=== PATIENT | female | born 1985 | race African-American/Black ===

== ENCOUNTER 2019-01-10 10:58 | Inpatient (IN) | payer OTHER ==
[2019-01-10] MEDS ORDERED: morphine CARPU-JECT 4 MG/1 ML DISP.SYRIN IVPUSH ONE (11:40)
[2019-01-10] MEDS ORDERED: SODIUM CHLORIDE 1,000 ML IV STA (11:41)
[2019-01-10] MEDS ORDERED: CEFAZOLIN 1 GM in DEXTROSE 5%-WATER - 50 ML IVPB ONE (11:44)
[2019-01-10] MEDS ORDERED: CLINDAMYCIN 600MG PREMIX IVPB 600 MG/50 ML BAG IVPB ONE (11:53)
[2019-01-10] MEDS ORDERED: CLINDAMYCIN PHOSPHATE 600 MG/4 ML VIAL ONE (11:59)
[2019-01-10] MEDS ORDERED: morphine SULFATE 4 MG/ML VIAL ONE (12:02)
[2019-01-10 12:15] LABS: BASO % 0.8 % (0-2.0); EOS % 0.5 % (0-4.5); HEMATOCRIT 35.4 % (32.4-45.2); HEMOGLOBIN 11.5 GM/dL (10.7-15.3); LYMPH % 13.2 % (8-40); MCH 27.6 pg (25.7-33.7); MCHC 32.6 g/dl (32.0-36.0); MEAN CELL VOLUME 84.8 fl (80-96); MEAN PLT VOLUME 7.3 fl (7.5-11.1); MONO % 6.7 % (3.8-10.2); NEUT % 78.8 % (42.8-82.8); PLATELET COUNT 368 K/MM3 (134-434); RBC 4.18 M/mm3 (3.60-5.2); WHITE BLOOD COUNT 11.5 K/mm3 (4.0-10.0)
[2019-01-10 12:41] LABS: ALBUMIN 3.7 g/dl (3.4-5.0); BILIRUBIN,TOTAL 0.4 mg/dL (0.2-1); BLOOD UREA NITROGEN 7.5 mg/dL (7-18); CALCIUM 9.3 mg/dL (8.5-10.1); CREATININE 0.6 mg/dL (0.55-1.3); POTASSIUM 3.4 mmol/L (3.5-5.1); TOT PROT 7.3 g/dl (6.4-8.2)
--- NOTE | 2019-01-10 12:45 | PDOC ---
History of Present Illness - General Chief Complaint: Sore Throat Stated Complaint: SORE THROAT Time Seen by Provider: 01/10/19 11:36 History Source: Patient - History of Present Illness Timing/Duration: other Past History - Past Medical History Allergies/Adverse Reactions: Allergies Allergy/AdvReac Type Severity Reaction Status Date / Time No Known Allergies Allergy Verified 01/10/19 11:01 Home Medications: Ambulatory Orders Amoxicillin/Potassium Clav [Augmentin 875-125 Tablet] 1 each PO BID #16 tablet 01/12/19 Fluconazole [Diflucan] 150 mg PO ONCE #1 tablet 01/12/19 predniSONE [Deltasone -] 40 mg PO ASDIR 3 Days #12 tab 01/12/19 COPD: No Other medical history: salivary stone - Psycho Social/Smoking Cessation Hx Smoking History: Never smoked Review of Systems - Review of Systems Constitutional: No: Chills, Fever HEENTM: Yes: Mouth Pain. No: Ear Pain, Throat Pain, Throat Swelling Respiratory: No: Cough, Shortness of Breath, Stridor ABD/GI: No: Nausea, Vomiting *Physical Exam - Vital Signs Last Vital Signs Temp Pulse Resp BP Pulse Ox 99.1 F 82 18 148/79 99 01/10/19 10:58 01/10/19 10:58 01/10/19 10:58 01/10/19 10:58 01/10/19 10:58 - Physical Exam General Appearance: Yes: Appropriately Dressed, Moderate Distress HEENT: positive: Normal Voice, Other (floor of mouth swollen and tender, no discharge or stone visualized, marked submandibular swelling, orophaynx clear, no stridor) Neck: positive: Supple. negative: Tender, Lymphadenopathy (R), Lymphadenopathy (L) Respiratory/Chest: negative: Respiratory Distress Integumentary: positive: Dry, Warm Neurologic: positive: Fully Oriented, Alert, Normal Mood/Affect ED Treatment Course - LABORATORY CBC & Chemistry Diagram: 01/11/19 06:00 01/11/19 06:00 - ADDITIONAL ORDERS Additional order review: Laboratory Results 01/10/19 11:48 Sodium 139 Potassium 3.4 L Chloride 103 Carbon Dioxide 26 Anion Gap 10 BUN 7.5 Creatinine 0.6 Est GFR (CKD-EPI)AfAm 136.87 Est GFR (CKD-EPI)NonAf 118.09 Random Glucose 91 Calcium 9.3 Total Bilirubin 0.4 AST 10 L ALT 18 Alkaline Phosphatase 128 H Total Protein 7.3 Albumin 3.7 01/10/19 12:00 RBC 4.18 MCV 84.8 MCHC 32.6 RDW 16.0 H MPV 7.3 L Neutrophils % 78.8 Lymphocytes % 13.2 Monocytes % 6.7 Eosinophils % 0.5 Basophils % 0.8 - RADIOLOGY Radiology Studies Ordered: Category Date Time Status SOFT TISSUE NECK CT WITH CONTR [CT] Stat CT Scan 01/10/19 11:54 Ordered - Medications Given in the ED: ED Medications Discontinued Medications Generic Name Dose Route Start Last Admin Trade Name Freq PRN Reason Stop Dose Admin Sodium Chloride 1,000 mls @ 1,000 mls/hr 01/10/19 11:41 01/10/19 12:11 Normal Saline - IV 01/10/19 12:40 1,000 mls/hr ASDIR STA Administration Cefazolin Sodium 1 gm/ 50 mls @ 100 mls/hr 01/10/19 11:44 01/10/19 12:12 Dextrose IVPB 01/10/19 12:13 Not Given ONCE ONE Clindamycin Phosphate 600 mg in 50 mls @ 100 mls/hr 01/10/19 11:53 01/10/19 12:12 Cleocin 600 Mg Premix Ivpb - IVPB 01/10/19 12:22 100 mls/hr ONCE ONE Administration Morphine Sulfate 4 mg 01/10/19 11:40 01/10/19 12:11 Morphine Injection - IVPUSH 01/10/19 11:41 4 mg ONCE ONE Administration Medical Decision Making - Medical Decision Making 01/10/19 12:45 33 yo F, endorses h/o submandibular salivary gland stone (had 1 extracted several months ago in outside ENT office but states she think she had a 2nd retained stone), was asymptomatic until 2 days ago when she developed sublingual pain and swelling. Was seen at [facility] this am and dx w/ sialolithiasis and discharged w/ supportive tx, percocet and ENT f/u. States she returned home and at some point noticed that "under my chin was swollen". No f/c, stiff neck, dysphagia and is able to handle secretions see exam Concern for recurrent submandibular sialololithiasis vs sialoadenitis vs abscess , less likely elsi's Stable w/ swollen, tender floor of mouth w/ marked submandibular swelling, no airway compromise at this time and handling secretions -pain control -IVF -labs -CT -anticipate admission 01/10/19 16:00 Labs unremarkable. Signed out to AGNES Ricketts pending CT. M/l needs ENT consult and admission 01/10/19 16:14 Discharge - Discharge Information Problems reviewed: Yes Clinical Impression/Diagnosis: Salivary duct calculus Condition: Stable Disposition: HOME - Admission Yes
[2019-01-10 14:13] LABS: EPI CELLS 9.6 /HPF (0-5/HPF); HYALINE CASTS 16 /lpf (0-8); PH,URINE 5.5 (5.0-8.0); URINE APPEARANCE CLOUDY; URINE BACTERIA 134.5 /hpf (NEGATIVE); URINE BILIRUBIN NEGATIVE (NEGATIVE); URINE COLOR YELLOW; URINE GLUCOSE (UA) NEGATIVE (NEGATIVE); URINE KETONE 3+ (NEGATIVE); URINE LEUK ESTERASE TRACE (NEGATIVE); URINE NITRITE NEGATIVE (NEGATIVE); URINE PROTEIN NEGATIVE (NEGATIVE); URINE RBC 3 /hpf (0-4); URINE WBC 3 /hpf (0-5)
[2019-01-10] MEDS ORDERED: ACETAMINOPHEN INJECTION 100 ML IVPB ONE ×2 (14:13→23:13)
[2019-01-10] MEDS ORDERED: ACETAMINOPHEN 1000 MG/100 ML VIAL (NON FORMULARY) IVPB ONE (14:14)
[2019-01-10] MEDS ORDERED: morphine CARPU-JECT 2 MG/1 ML DISP.SYRIN IVPUSH ONE (17:22)
[2019-01-10] MEDS ORDERED: MORPHINE SULFATE 2 MG/ML VIAL ONE (18:06)
[2019-01-10] MEDS ORDERED: DEXAMETHASONE SOD PHOSPHATE 10 MG/1 ML VIAL IVPUSH ONE (18:55)
[2019-01-10] MEDS ORDERED: DEXAMETHASONE SOD PHOSPHATE 10 MG/1 ML VIAL ONE (19:00)
--- NOTE | 2019-01-10 19:21 | PDOC ---
*Physical Exam - Vital Signs Last Vital Signs Temp Pulse Resp BP Pulse Ox 100.2 F H 89 18 116/72 100 01/10/19 18:22 01/10/19 18:22 01/10/19 10:58 01/10/19 18:22 01/10/19 18:22 - Physical Exam Comments: 01/10/19 16:14 Sign-out received from outgoing ER provider Delon. Pt interviewed and examined. Ancillary studies reviewed. Awaiting CT results. While awaiting CT results, patient reports that "a stone came out on its own." CT results indicate 6 mm distal Aishwarya's duct stone with dilatation and inflammatory changes and 1.3 cm calcification to left neck at base of tongue with surrounding inflammatory change, representing possible calcified stylohyoid ligament vs accessory salivary duct stone. Discussed case with ENT MD Dietz who states if patient can tolerate po, can be discharged w/ close outpatient f/u. Patient currently is unable to tolerate po due to mouth/tongue swelling, Decadron given. Will monitor and reassess. 01/10/19 20:14 Patient reassessed, is still unable to tolerate own secretions. Will admit, per ENT will see her on Friday. ENT recommends continue IV abx and steroids. Discussed case with admitting resident MD Rodriguez; patient accepted for inpatient services . ED Treatment Course - LABORATORY CBC & Chemistry Diagram: 01/10/19 12:00 01/10/19 11:48 - ADDITIONAL ORDERS Additional order review: Laboratory Results 01/10/19 01/10/19 01/10/19 13:55 12:01 11:48 Sodium 139 Potassium 3.4 L Chloride 103 Carbon Dioxide 26 Anion Gap 10 BUN 7.5 Creatinine 0.6 Est GFR (CKD-EPI)AfAm 136.87 Est GFR (CKD-EPI)NonAf 118.09 Random Glucose 91 Calcium 9.3 Total Bilirubin 0.4 AST 10 L ALT 18 Alkaline Phosphatase 128 H Total Protein 7.3 Albumin 3.7 Serum , Qual Negative Urine Color Yellow Urine Appearance Cloudy Urine pH 5.5 Ur Specific [place] 1.035 Urine Protein Negative Urine Glucose (UA) Negative Urine Ketones 3+ H Urine Blood Negative Urine Nitrite Negative Urine Bilirubin Negative Urine Urobilinogen 1.0 Ur Leukocyte Esterase Trace Urine WBC (Auto) 3 Urine RBC (Auto) 3 Urine Casts (Auto) 16 U Epithel Cells (Auto) 9.6 Urine Bacteria (Auto) 134.5 01/10/19 12:00 RBC 4.18 MCV 84.8 MCHC 32.6 RDW 16.0 H MPV 7.3 L Neutrophils % 78.8 Lymphocytes % 13.2 Monocytes % 6.7 Eosinophils % 0.5 Basophils % 0.8 - Medications Given in the ED: ED Medications Discontinued Medications Generic Name Dose Route Start Last Admin Trade Name Blaise PRN Reason Stop Dose Admin Acetaminophen 1,000 mg 01/10/19 14:14 01/10/19 14:22 Ofirmev Injection - IVPB 01/10/19 14:15 1,000 mg ONCE ONE Administration Dexamethasone Sodium Phosphate 10 mg 01/10/19 18:55 01/10/19 19:03 Decadron Injection - IVPUSH 01/10/19 18:56 10 mg ONCE ONE Administration Sodium Chloride 1,000 mls @ 1,000 mls/hr 01/10/19 11:41 01/10/19 12:11 Normal Saline - IV 01/10/19 12:40 1,000 mls/hr ASDIR STA Administration Cefazolin Sodium 1 gm/ 50 mls @ 100 mls/hr 01/10/19 11:44 01/10/19 12:12 Dextrose IVPB 01/10/19 12:13 Not Given ONCE ONE Clindamycin Phosphate 600 mg in 50 mls @ 100 mls/hr 01/10/19 11:53 01/10/19 12:12 Cleocin 600 Mg Premix Ivpb - IVPB 01/10/19 12:22 100 mls/hr ONCE ONE Administration Morphine Sulfate 4 mg 01/10/19 11:40 01/10/19 12:11 Morphine Injection - IVPUSH 01/10/19 11:41 4 mg ONCE ONE Administration Morphine Sulfate 2 mg 01/10/19 17:22 01/10/19 18:09 Morphine Injection - IVPUSH 01/10/19 17:23 2 mg ONCE ONE Administration *DC/Admit/Observation/Transfer Diagnosis at time of Disposition: Salivary duct calculus - Discharge Dispostion Decision to Admit order: Yes - Referrals - Patient Instructions - Post Discharge Activity
--- NOTE | 2019-01-10 21:15 | PN ---
Teaching Attending Note Name of Resident: Mynor Carney ATTENDING PHYSICIAN STATEMENT I saw and evaluated the patient. I reviewed the resident's note and discussed the case with the resident. I agree with the resident's findings and plan as documented. SUBJECTIVE: 33 year old woman w/ prior sialolithiasis presents with a 2-3 day history of increased mandibular swelling and difficulty swallowing. 1 year ago was told she has 2 salivary stones and had 1 removed in the office that was causing her pain. 2-3 days ago, notices+ pain, swelling, difficulty swallowing. Patient also mentioned she passed a stone from under tongue earlier today. While in the ED, ENT was notified and noted that they will see the patient and to give the patient Decadron. OBJECTIVE: Last Vital Signs Temp Pulse Resp BP Pulse Ox 100.2 F H 88 18 109/52 L 98 01/10/19 18:22 01/10/19 20:24 01/10/19 20:24 01/10/19 20:24 01/10/19 20:24 gen - appears uncomfortable, no resp distress heent - left saurav-parotid swelling, some tenderness, no stones in mouth neck -left sided tenderness, swelling cv-1+s2+ rrr chest clear ext -no swelling Abnormal Lab Results 01/10/19 01/10/19 01/10/19 11:48 12:00 13:55 WBC 11.5 H RDW 16.0 H MPV 7.3 L Absolute Neuts (auto) 9.1 H Potassium 3.4 L AST 10 L Alkaline Phosphatase 128 H Urine Ketones 3+ H CT results indicate 6 mm distal Orefield's duct stone with dilatation and inflammatory changes and 1.3 cm calcification to left neck at base of tongue with surrounding inflammatory change, representing possible calcified stylohyoid ligament vs accessory salivary duct stone. ASSESSMENT AND PLAN: #Sialadenitis- 6 mm distal Orefield's duct stone with dilatation and inflammatory changes- likely infection of surrounding soft tissues as evidenced by low grade fever, leukocytosis, swelling. Protecting airway, do not suspect airway compromise at this time. 1.3 cm calcification to left neck at base of tongue. -med/surg -npo -speech/swallow eval -monitor airway -c/w decadron 10mg q12hrs -blood cultures -unasyn 3g IV q6hrs -iv fluid hydration -ent evaluation -dvt ppx
--- NOTE | 2019-01-10 21:44 | HP ---
CHIEF COMPLAINT: stones in mouth, difficulty swallowing PCP: Dr. Susana Urrutia HISTORY OF PRESENT ILLNESS: Panchito Napier 33 year old female with a past medical history of sialolithiasis presents with a 2-3 day history of increased swelling and difficulty swallowing. 1 year prior the patient noted that she was at the oral surgeon where she was told she has 2 salivary stones and had 1 removed in the office that was causing her pain. 2-3 days ago, the patient began to notice that she was having increased swelling in her mouth, difficulty swallowing, changes in her voice, at times difficulty breathing, and pain in the mouth. Tried Tylenol and ibuprofen for the pain with no remission and no improvement in swelling. She stated she visited 2 hospitals prior to this visit and was told to follow up with outpatient ENT and given pain medication. She notes that she was first having difficulty swallowing foods and liquids and then began to have trouble swallowing her own saliva. Additionally, states she has a headache , lightheadedness, and ear pain. Denies perioral numbness/tingling, fever, chills, changes in vision, trauma to the mouth, syncope, dizziness, chest pain, nausea, vomiting, abdominal pain, dysuria, generalized weakness, numbness/ tingling elsewhere in the body. She states that while she was here in the ED, one of the salivary stones was excreted. While in the ED, ENT was notified and noted that they will see the patient and to give the patient Decadron. Decadron was given with moderate effect, patient stated swelling has decreased and was able to swallow secretions. ER course was notable for: (1) WBC 11.5, K 3.4 (2) CT of soft tissues and neck showing left distal Huron's duct stone 6mm with dilation of the duct and inflammation of the left duct in mildly atrophic submandibular duct suggesting acute on chronic process. 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 Allergies No Known Allergies Allergy (Verified 01/10/19 11:01) HOME MEDICATIONS: Home Medications Medication Instructions Recorded Oxycodone HCl/Acetaminophen 1 - 2 tab PO BID 01/10/19 [Percocet 5-325 mg Tablet] REVIEW OF SYSTEMS CONSTITUTIONAL: Absent: fever, chills, diaphoresis, generalized weakness, malaise, loss of appetite, weight change HEENT: difficulty swallowing, mouth swelling, ear pain Absent: rhinorrhea, nasal congestion, throat pain, throat swelling, eye pain, visual changes CARDIOVASCULAR: lightheadedness Absent: chest pain, syncope, palpitations, irregular heart rate, peripheral edema RESPIRATORY: cough, shortness of breath Absent: dyspnea with exertion, orthopnea, wheezing, stridor, hemoptysis GASTROINTESTINAL: Absent: abdominal pain, abdominal distension, nausea, vomiting, diarrhea, constipation GENITOURINARY: Absent: dysuria, frequency, urgency, hesitancy, hematuria, flank pain, MUSCULOSKELETAL: Absent: myalgia, arthralgia, joint swelling, back pain, neck pain SKIN: Absent: rash, itching, pallor HEMATOLOGIC/IMMUNOLOGIC: Absent: easy bleeding, easy bruising, lymphadenopathy, frequent infections ENDOCRINE: Absent: unexplained weight gain, unexplained weight loss, heat intolerance, cold intolerance NEUROLOGIC: Absent: headache, focal weakness or paresthesias, dizziness, unsteady gait, seizure, mental status changes PSYCHIATRIC: Absent: anxiety, depression, suicidal or homicidal ideation, hallucinations. PHYSICAL EXAMINATION Vital Signs - 24 hr 01/10/19 01/10/19 01/10/19 10:58 18:22 20:24 Temperature 99.1 F 100.2 F H Pulse Rate 82 Pulse Rate [ 89 88 Right Apical] Respiratory 18 18 Rate Blood Pressure 148/79 Blood Pressure 116/72 109/52 L [Right Arm] O2 Sat by Pulse 99 100 98 Oximetry (%) GENERAL: Awake, alert, and fully oriented, in mild acute distress. HEAD: Normal with no signs of trauma. EYES: Pupils equal, round and reactive to light, extraocular movements intact, sclera anicteric, conjunctiva clear. EARS, NOSE, THROAT: Oropharynx clear without exudates. Poor visualization of soft palate. Tongue swollen, noted dry blood on left submandibular salivary duct. Dry mucous membranes. NECK: Normal range of motion, supple without lymphadenopathy, JVD. LUNGS: Breath sounds equal, clear to auscultation bilaterally. No wheezes, and no crackles. No accessory muscle use. HEART: Regular rate and rhythm, normal S1 and S2 without murmur, rub. ABDOMEN: Soft, nontender, not distended, normoactive bowel sounds, no guarding, no rebound, no masses. MUSCULOSKELETAL: Normal range of motion at all joints. No bony deformities or tenderness. No CVA tenderness. UPPER EXTREMITIES: 2+ pulses, warm, well-perfused. No cyanosis. No clubbing. No peripheral edema. LOWER EXTREMITIES: 2+ pulses, warm, well-perfused. No calf tenderness. No peripheral edema. NEUROLOGICAL: Cranial nerves II-XII intact. 5/5 muscle strength bilaterally upper and lower extremities. PSYCHIATRIC: Cooperative. Good eye contact. Appropriate mood and affect. SKIN: Warm, dry, normal turgor, no rashes or lesions noted, normal capillary refill. Laboratory Results - last 24 hr 01/10/19 01/10/19 01/10/19 11:48 12:00 12:01 WBC 11.5 H RBC 4.18 Hgb 11.5 Hct 35.4 MCV 84.8 MCH 27.6 MCHC 32.6 RDW 16.0 H Plt Count 368 MPV 7.3 L Absolute Neuts (auto) 9.1 H Neutrophils % 78.8 Lymphocytes % 13.2 Monocytes % 6.7 Eosinophils % 0.5 Basophils % 0.8 Nucleated RBC % 0 Sodium 139 Potassium 3.4 L Chloride 103 Carbon Dioxide 26 Anion Gap 10 BUN 7.5 Creatinine 0.6 Est GFR (CKD-EPI)AfAm 136.87 Est GFR (CKD-EPI)NonAf 118.09 Random Glucose 91 Calcium 9.3 Total Bilirubin 0.4 AST 10 L ALT 18 Alkaline Phosphatase 128 H Total Protein 7.3 Albumin 3.7 Serum , Qual Negative Urine Color Urine Appearance Urine pH Ur Specific [place] Urine Protein Urine Glucose (UA) Urine Ketones Urine Blood Urine Nitrite Urine Bilirubin Urine Urobilinogen Ur Leukocyte Esterase Urine WBC (Auto) Urine RBC (Auto) Urine Casts (Auto) U Epithel Cells (Auto) Urine Bacteria (Auto) 01/10/19 13:55 WBC RBC Hgb Hct MCV MCH MCHC RDW Plt Count MPV Absolute Neuts (auto) Neutrophils % Lymphocytes % Monocytes % Eosinophils % Basophils % Nucleated RBC % Sodium Potassium Chloride Carbon Dioxide Anion Gap BUN Creatinine Est GFR (CKD-EPI)AfAm Est GFR (CKD-EPI)NonAf Random Glucose Calcium Total Bilirubin AST ALT Alkaline Phosphatase Total Protein Albumin Serum , Qual Urine Color Yellow Urine Appearance Cloudy Urine pH 5.5 Ur Specific [place] 1.035 Urine Protein Negative Urine Glucose (UA) Negative Urine Ketones 3+ H Urine Blood Negative Urine Nitrite Negative Urine Bilirubin Negative Urine Urobilinogen 1.0 Ur Leukocyte Esterase Trace Urine WBC (Auto) 3 Urine RBC (Auto) 3 Urine Casts (Auto) 16 U Epithel Cells (Auto) 9.6 Urine Bacteria (Auto) 134.5 ASSESSMENT/PLAN: Panchito Napier 33 year old female with a past medical history of sialolithiasis presents with difficulty swallowing, shortness of breath secondary to tongue swelling from retained salivary stones. Upper airway swelling secondary to Sialolithiasis Hypokalemia Upper airway swelling secondary to Sialolithiasis - from retained stones - CT as above - Unasyn 3g q6h - decadron 10mg q12, consider to taper daily - monitor airway for any compromise or inability to handle secretions - ENT consulted - blood cultures pending - speech/swallow eval - encourage adequate hydration and smoking cessation as these are causes of salivary stones - Protonix 40mg bid - sliding scale and BGM in setting of high dose steroids Hypokalemia - given 2 10Meq IV infusions - continue to monitor FEN - LR at 83 cc/hr - continue to monitor electrolytes and replete as necessary, hypokalemia noted - NPO until advanced by ENT Prophylaxis - heparin 5000 units subq tid Code - full code ELDON RAMIREZ DO - PGY-1 Family Medical History Family Hx Cardiac Disorders: Grandmother (maternal) (HTN), Mother (HTN) Visit type - Emergency Visit Emergency Visit: Yes ED Registration Date: 01/10/19 Care time: The patient presented to the Emergency Department on the above date and was hospitalized for further evaluation of their emergent condition. - New Patient This patient is new to me today: Yes Date on this admission: 01/11/19 - Critical Care Critical Care patient: No
[2019-01-10] MEDS ORDERED: KCL 10 MEQ IVPB 20 MEQ/200 ML INFUS.BAG IVPB ONE (22:36)
[2019-01-10] MEDS: LACTATED RINGERS SOLUTION 1,000 ML/1,000 ML INFUS.BAG IV SCH (22:51)
[2019-01-10] MEDS: KCL 10 MEQ IVPB 10 MEQ/100 ML INFUS.BAG IVPB SCH ×2 (22:51→23:57)
[2019-01-10] MEDS: ACETAMINOPHEN 1000 MG/100 ML VIAL (NON FORMULARY) IVPB PRN (23:12)
[2019-01-11] MEDS ORDERED: CLINDAMYCIN 900 MG PREMIX IVPB 900 MG/50 ML BAG IVPB SCH (02:00)
[2019-01-11] MEDS ORDERED: CLINDAMYCIN 600MG PREMIX IVPB 600 MG/50 ML BAG IVPB SCH (02:00)
[2019-01-11] MEDS ORDERED: CLINDAMYCIN 600MG PREMIX IVPB 600 MG/50 ML BAG IVPB ONE (02:08)
[2019-01-11] MEDS ORDERED: DEXAMETHASONE SOD PHOSPHATE 10 MG/1 ML VIAL ONE ×2 (06:34→18:58)
[2019-01-11] MEDS ORDERED: HEPARIN NA (PORCINE) 5,000 UNITS/ML 1ML VIAL ONE (06:34)
[2019-01-11] MEDS: DEXAMETHASONE SOD PHOSPHATE 10 MG/1 ML VIAL IVPUSH SCH ×2 (06:57→19:20)
[2019-01-11] MEDS: HEPARIN NA (PORCINE) 5,000 UNITS/ML 1ML VIAL SQ SCH ×3 (07:03→22:09)
[2019-01-11] MEDS: INSULIN SLIDING SCALE (NOVOLOG) 1 VIAL SQ SCH ×4 (07:04→22:09)
[2019-01-11 07:08] LABS: BASO % 0.2 % (0-2.0); HEMATOCRIT 35.2 % (32.4-45.2); HEMOGLOBIN 11.4 GM/dL (10.7-15.3); LYMPH % 7.1 % (8-40); MCH 27.5 pg (25.7-33.7); MCHC 32.4 g/dl (32.0-36.0); MEAN CELL VOLUME 84.9 fl (80-96); MEAN PLT VOLUME 7.9 fl (7.5-11.1); MONO % 3.9 % (3.8-10.2); NEUT % 88.8 % (42.8-82.8); PLATELET COUNT 418 K/MM3 (134-434); RBC 4.15 M/mm3 (3.60-5.2); RDW 15.7 % (11.6-15.6); WHITE BLOOD COUNT 12.7 K/mm3 (4.0-10.0)
[2019-01-11 07:23] LABS: ALBUMIN 3.5 g/dl (3.4-5.0); BILIRUBIN,TOTAL 0.4 mg/dL (0.2-1); BLOOD UREA NITROGEN 6.8 mg/dL (7-18); CALCIUM 9.4 mg/dL (8.5-10.1); CREATININE 0.5 mg/dL (0.55-1.3); MAGNESIUM 2.3 mg/dL (1.8-2.4); POTASSIUM 4.2 mmol/L (3.5-5.1); TOT PROT 7.4 g/dl (6.4-8.2)
[2019-01-11] MEDS ORDERED: ACETAMINOPHEN INJECTION 100 ML IVPB ONE (08:27)
[2019-01-11] MEDS: AMPICILLIN NA/SULBACTAM NA 3 GM in SODIUM CHLORIDE 100 ML IVPB SCH ×4 (08:30→22:08)
[2019-01-11] MEDS: ACETAMINOPHEN 1000 MG/100 ML VIAL (NON FORMULARY) IVPB PRN (08:32)
--- NOTE | 2019-01-11 10:27 | EKG ---
Test Reason : Blood Pressure : / mmHG Vent. Rate : 084 BPM Atrial Rate : 084 BPM P-R Int : 134 ms QRS Dur : 086 ms QT Int : 384 ms P-R-T Axes : 000 186 173 degrees QTc Int : 453 ms NORMAL SINUS RHYTHM RIGHT SUPERIOR AXIS DEVIATION ABNORMAL ECG NO PREVIOUS ECGS AVAILABLE Confirmed by GAGE SCHMIDT, LIZZETH ([id number]) on 01/11/2019 10:27:01 AM Referred By: Confirmed By:LIZZETH ALMONTE MD
--- NOTE | 2019-01-11 10:38 | PN ---
Teaching Attending Note Name of Resident: Matti Salazar ATTENDING PHYSICIAN STATEMENT I saw and evaluated the patient. I reviewed the resident's note and discussed the case with the resident. I agree with the resident's findings and plan as documented. SUBJECTIVE: Patient reports some improvement in swelling and ability to swallow. OBJECTIVE: HEENT: Left submandibular fullness HEART: S1S2, RRR LUNGS: Clear ABDOMEN: Obese, soft, non-tender, non-distended, normal BS EXTREMITIES: No edema Laboratory Results - last 24 hr 01/10/19 01/10/19 01/10/19 11:48 12:00 12:01 WBC 11.5 H RBC 4.18 Hgb 11.5 Hct 35.4 MCV 84.8 MCH 27.6 MCHC 32.6 RDW 16.0 H Plt Count 368 MPV 7.3 L Absolute Neuts (auto) 9.1 H Neutrophils % 78.8 Lymphocytes % 13.2 Monocytes % 6.7 Eosinophils % 0.5 Basophils % 0.8 Nucleated RBC % 0 Sodium 139 Potassium 3.4 L Chloride 103 Carbon Dioxide 26 Anion Gap 10 BUN 7.5 Creatinine 0.6 Est GFR (CKD-EPI)AfAm 136.87 Est GFR (CKD-EPI)NonAf 118.09 POC Glucometer Random Glucose 91 Calcium 9.3 Magnesium Total Bilirubin 0.4 AST 10 L ALT 18 Alkaline Phosphatase 128 H Total Protein 7.3 Albumin 3.7 Serum , Qual Negative Urine Color Urine Appearance Urine pH Ur Specific [place] Urine Protein Urine Glucose (UA) Urine Ketones Urine Blood Urine Nitrite Urine Bilirubin Urine Urobilinogen Ur Leukocyte Esterase Urine WBC (Auto) Urine RBC (Auto) Urine Casts (Auto) U Epithel Cells (Auto) Urine Bacteria (Auto) 01/10/19 01/11/19 01/11/19 13:55 06:00 06:00 WBC 12.7 H RBC 4.15 Hgb 11.4 Hct 35.2 MCV 84.9 MCH 27.5 MCHC 32.4 RDW 15.7 H Plt Count 418 MPV 7.9 Absolute Neuts (auto) 11.3 H Neutrophils % 88.8 H Lymphocytes % 7.1 L D Monocytes % 3.9 Eosinophils % 0.0 D Basophils % 0.2 Nucleated RBC % 0 Sodium 136 Potassium 4.2 Chloride 104 Carbon Dioxide 25 Anion Gap 7 L BUN 6.8 L Creatinine 0.5 L Est GFR (CKD-EPI)AfAm 145.33 Est GFR (CKD-EPI)NonAf 125.39 POC Glucometer Random Glucose 127 H Calcium 9.4 Magnesium 2.3 Total Bilirubin 0.4 AST 7 L ALT 15 Alkaline Phosphatase 128 H Total Protein 7.4 Albumin 3.5 Serum , Qual Urine Color Yellow Urine Appearance Cloudy Urine pH 5.5 Ur Specific [place] 1.035 Urine Protein Negative Urine Glucose (UA) Negative Urine Ketones 3+ H Urine Blood Negative Urine Nitrite Negative Urine Bilirubin Negative Urine Urobilinogen 1.0 Ur Leukocyte Esterase Trace Urine WBC (Auto) 3 Urine RBC (Auto) 3 Urine Casts (Auto) 16 U Epithel Cells (Auto) 9.6 Urine Bacteria (Auto) 134.5 01/11/19 07:01 WBC RBC Hgb Hct MCV MCH MCHC RDW Plt Count MPV Absolute Neuts (auto) Neutrophils % Lymphocytes % Monocytes % Eosinophils % Basophils % Nucleated RBC % Sodium Potassium Chloride Carbon Dioxide Anion Gap BUN Creatinine Est GFR (CKD-EPI)AfAm Est GFR (CKD-EPI)NonAf POC Glucometer 135 Random Glucose Calcium Magnesium Total Bilirubin AST ALT Alkaline Phosphatase Total Protein Albumin Serum , Qual Urine Color Urine Appearance Urine pH Ur Specific [place] Urine Protein Urine Glucose (UA) Urine Ketones Urine Blood Urine Nitrite Urine Bilirubin Urine Urobilinogen Ur Leukocyte Esterase Urine WBC (Auto) Urine RBC (Auto) Urine Casts (Auto) U Epithel Cells (Auto) Urine Bacteria (Auto) Current Medications Generic Name Dose Route Start Last Admin Trade Name Freq PRN Reason Stop Dose Admin Acetaminophen 1,000 mg 01/10/19 22:29 01/11/19 08:32 Ofirmev Injection - IVPB 1,000 mg Q6H PRN Administration PAIN OR FEVER Dexamethasone Sodium Phosphate 10 mg 01/11/19 06:00 01/11/19 06:57 Decadron Injection - IVPUSH 10 mg Q12H JUANIS Administration Heparin Sodium (Porcine) 5,000 unit 01/11/19 06:00 01/11/19 07:03 Heparin - SQ Not Given TID JUANIS Lactated Ringer's 1,000 ml in 1,000 mls @ 83 mls/hr 01/10/19 22:30 01/10/19 22:51 Lactated Ringers Solution IV 83 mls/hr ASDIR JUANIS Administration Ampicillin Sodium/Sulbactam 100 mls @ 200 mls/hr 01/11/19 06:30 Sodium 3 gm/ Sodium Chloride IVPB Q6H-IV JUANIS Insulin Aspart 1 vial 01/11/19 07:00 01/11/19 07:04 Novolog Vial Sliding Scale - SQ Not Given ACHS JUANIS Protocol Pantoprazole Sodium 40 mg 01/11/19 10:00 Protonix Iv IVPUSH BID JUANIS ASSESSMENT AND PLAN: This is a 33 year old woman with a history of sialolithiasis who presented to the ED with difficulty swallowing and swelling of her tongue. 1. Sialadenitis - Continue Unasyn, Decadron - IV fluid - NPO - ENT evaluation 2. Hypokalemia - Improved
[2019-01-11] MEDS ORDERED: PANTOPRAZOLE SODIUM 40 MG/100 ML BAG IVPB ONE (11:19)
[2019-01-11] MEDS: PANTOPRAZOLE SODIUM 40 MG VIAL IVPUSH SCH ×2 (15:00→22:09)
--- NOTE | 2019-01-11 16:27 | PN ---
Physical Exam: SUBJECTIVE: see and evaluated at bedside. Expresses improvement in swallowing. Able to tolerate saliva and testing iced water. States that there is still moderate pain in the Left lower jaw but the Left ear pain has resolved OBJECTIVE: Vital Signs Period Temp Pulse Resp BP Sys/Jean-Baptiste Pulse Ox Last 24 Hr 100.2 F 88-105 18-18 109-132/52-76 98-100 GENERAL: The patient is awake, alert, and fully oriented, in no acute distress. HEAD: Normal with no signs of trauma. EYES: sclera anicteric, conjunctiva clear. ENT: Ears normal, nares patent, oropharynx clear without exudates, no blood in oropharynx. Moist mucous membranes. Soft palate visible. No swelling of tongue or under tongue. Mild fullness and tenderness to deep Left submental area. [place] chalky firm subcentimeter mass seen in specimen kit, claimed to be spat out by patient NECK: Trachea midline, full range of motion, supple. LUNGS: Breath sounds equal, clear to auscultation bilaterally, no wheezes, no crackles, no accessory muscle use. HEART: Regular rate and rhythm, S1, S2 without murmur, rub or gallop. ABDOMEN: Soft, nontender, nondistended, no guarding, no rebound, no hepatosplenomegaly, no masses. EXTREMITIES: warm, well-perfused, no edema. NEUROLOGICAL: Cranial nerves II through XII grossly intact. Normal speech, normal gait. PSYCH: Normal mood, normal affect. Laboratory Results - last 24 hr 01/11/19 01/11/19 01/11/19 06:00 06:00 07:01 WBC 12.7 H RBC 4.15 Hgb 11.4 Hct 35.2 MCV 84.9 MCH 27.5 MCHC 32.4 RDW 15.7 H Plt Count 418 MPV 7.9 Absolute Neuts (auto) 11.3 H Neutrophils % 88.8 H Lymphocytes % 7.1 L D Monocytes % 3.9 Eosinophils % 0.0 D Basophils % 0.2 Nucleated RBC % 0 Sodium 136 Potassium 4.2 Chloride 104 Carbon Dioxide 25 Anion Gap 7 L BUN 6.8 L Creatinine 0.5 L Est GFR (CKD-EPI)AfAm 145.33 Est GFR (CKD-EPI)NonAf 125.39 POC Glucometer 135 Random Glucose 127 H Calcium 9.4 Magnesium 2.3 Total Bilirubin 0.4 AST 7 L ALT 15 Alkaline Phosphatase 128 H Total Protein 7.4 Albumin 3.5 01/11/19 13:52 WBC RBC Hgb Hct MCV MCH MCHC RDW Plt Count MPV Absolute Neuts (auto) Neutrophils % Lymphocytes % Monocytes % Eosinophils % Basophils % Nucleated RBC % Sodium Potassium Chloride Carbon Dioxide Anion Gap BUN Creatinine Est GFR (CKD-EPI)AfAm Est GFR (CKD-EPI)NonAf POC Glucometer 141 Random Glucose Calcium Magnesium Total Bilirubin AST ALT Alkaline Phosphatase Total Protein Albumin Active Medications Generic Name Dose Route Start Last Admin Trade Name Freq PRN Reason Stop Dose Admin Acetaminophen 1,000 mg 01/10/19 22:29 01/11/19 08:32 Ofirmev Injection - IVPB 1,000 mg Q6H PRN Administration PAIN OR FEVER Dexamethasone Sodium Phosphate 10 mg 01/11/19 06:00 01/11/19 06:57 Decadron Injection - IVPUSH 10 mg Q12H JUANIS Administration Heparin Sodium (Porcine) 5,000 unit 01/11/19 06:00 01/11/19 07:03 Heparin - SQ Not Given TID JUANIS Lactated Ringer's 1,000 ml in 1,000 mls @ 83 mls/hr 01/10/19 22:30 01/10/19 22:51 Lactated Ringers Solution IV 83 mls/hr ASDIR JUANIS Administration Ampicillin Sodium/Sulbactam 100 mls @ 200 mls/hr 01/11/19 06:30 01/11/19 11: 18 Sodium 3 gm/ Sodium Chloride IVPB Not Given Q6H-IV JUANIS Insulin Aspart 1 vial 01/11/19 07:00 01/11/19 07:04 Novolog Vial Sliding Scale - SQ Not Given ACHS [facility] Protocol Pantoprazole Sodium 40 mg 01/11/19 10:00 Protonix Iv IVPUSH BID JUANIS Vital Signs (72 hours) 01/10/19 01/10/19 01/10/19 10:58 18:22 20:24 Temperature 99.1 F 100.2 F H Pulse Rate 82 Pulse Rate [ 89 88 Right Apical] Respiratory 18 18 Rate Blood Pressure 148/79 Blood Pressure 116/72 109/52 L [Right Arm] O2 Sat by Pulse 99 100 98 Oximetry (%) 01/11/19 01/11/19 01/11/19 02:04 05:29 08:15 Temperature Pulse Rate Pulse Rate [ 105 H 88 Right Apical] Respiratory 18 18 Rate Blood Pressure Blood Pressure 128/74 132/76 [Right Arm] O2 Sat by Pulse 98 98 100 Oximetry (%) CT neck(01/10/19): IMPRESSION: Obstructing stone in the distal left [place]'s duct measuring 6 x 3 mm with thickening and enhancement of the duct suggestive of inflammatory/ infection. Correlate clinically. Atrophic left submandibular gland. There is significant surrounding soft tissue swelling with mass effect on the oropharyngeal and hypopharyngeal airway that is slightly shifted towards the right without any significant narrowing. There is also stranding/edema and the left submandibular fossa extending to the left submental region. Enlarged left submandibular lymph node measuring 2 x 1.1 cm. ASSESSMENT/PLAN: Panchito Napier 33 year old female with a past medical history of sialolithiasis presents with difficulty swallowing, shortness of breath secondary to tongue swelling from retained salivary stones. Upper airway swelling secondary to Sialolithiasis - from retained stones - CT as above - Unasyn 3g q6h - decadron 10mg q12, consider to taper daily - monitor airway for any compromise or inability to handle secretions - ENT consulted -- will evaluate on Friday - blood cultures pending - speech/swallow eval - encourage adequate hydration and smoking cessation as these are causes of salivary stones - Protonix 40mg bid - sliding scale and BGM in setting of high dose steroids - continue to monitor ability to tolerate oral secretions Hypokalemia -- resolved - given 2 10Meq IV infusions >K ~4.2(01/11/19) - continue to monitor FEN - LR at 83 cc/hr - continue to monitor electrolytes and replete as necessary, hypokalemia noted - NPO until advanced by ENT Prophylaxis - heparin 5000 units subq tid Code - full code Visit type - Emergency Visit Emergency Visit: No - New Patient This patient is new to me today: Yes Date on this admission: 01/10/19 - Critical Care Critical Care patient: No ATTENDING PHYSICIAN STATEMENT I saw and evaluated the patient. I reviewed the resident's note and discussed the case with the resident. I agree with the resident's findings and plan as documented. SUBJECTIVE: OBJECTIVE: ASSESSMENT AND PLAN:
[2019-01-11] MEDS ORDERED: PT OWN MED DRAWER 7, Y5N ONE (20:32)
[2019-01-11] MEDS: LACTATED RINGERS SOLUTION 1,000 ML/1,000 ML INFUS.BAG IV SCH ×2 (20:36→22:51)
[2019-01-11 20:53] VITALS: BMI 36.1
[2019-01-12] MEDS: ACETAMINOPHEN 1000 MG/100 ML VIAL (NON FORMULARY) IVPB PRN (00:43)
[2019-01-12] MEDS: AMPICILLIN NA/SULBACTAM NA 3 GM in SODIUM CHLORIDE 100 ML IVPB SCH ×3 (02:42→16:04)
[2019-01-12] MEDS ORDERED: PT OWN MED DRAWER 7, Y5N ONE ×4 (05:27→18:10)
[2019-01-12] MEDS: HEPARIN NA (PORCINE) 5,000 UNITS/ML 1ML VIAL SQ SCH ×2 (05:55→14:35)
[2019-01-12] MEDS: DEXAMETHASONE SOD PHOSPHATE 10 MG/1 ML VIAL IVPUSH SCH ×2 (05:55→18:14)
[2019-01-12] MEDS: INSULIN SLIDING SCALE (NOVOLOG) 1 VIAL SQ SCH ×3 (06:20→18:04)
[2019-01-12] MEDS: PANTOPRAZOLE SODIUM 40 MG VIAL IVPUSH SCH (10:33)
--- NOTE | 2019-01-12 11:39 | CONSULT ---
Admitting History and Physical - Primary Care Physician PCP: Vincent Hinson - Admission History of Present Illness: Per EMR- Panchito Napier 33 year old female with a past medical history of sialolithiasis presents with a 2-3 day history of increased swelling and difficulty swallowing. 1 year prior the patient noted that she was at the oral surgeon where she was told she has 2 salivary stones and had 1 removed in the office that was causing her pain. 2-3 days ago, the patient began to notice that she was having increased swelling in her mouth, difficulty swallowing, changes in her voice, at times difficulty breathing, and pain in the mouth. Tried Tylenol and ibuprofen for the pain with no remission and no improvement in swelling. She stated she visited 2 hospitals prior to this visit and was told to follow up with outpatient ENT and given pain medication. She notes that she was first having difficulty swallowing foods and liquids and then began to have trouble swallowing her own saliva. Additionally, states she has a headache , lightheadedness, and ear pain. Denies perioral numbness/tingling, fever, chills, changes in vision, trauma to the mouth, syncope, dizziness, chest pain, nausea, vomiting, abdominal pain, dysuria, generalized weakness, numbness/ tingling elsewhere in the body. She states that while she was here in the ED, one of the salivary stones was excreted. While in the ED, ENT was notified and noted that they will see the patient and to give the patient Decadron. Decadron was given with moderate effect, patient stated swelling has decreased and was able to swallow secretions. ER course was notable for: (1) WBC 11.5, K 3.4 (2) CT of soft tissues and neck showing left distal [place]'s duct stone 6mm with dilation of the duct and inflammation of the left duct in mildly atrophic submandibular duct suggesting acute on chronic process. Curvilinear calcification 1.3 cm noted at the left base of the tongue which may represent calcified stylohyoid ligament and sequela of [place] syndrome vs accessory salivary duct stone (3) given Clindamycin 600mg once, Morphine 6mg, Dexamethasone 10mg, NSx1L, tylenol 1000mg Pt tolerated reg diet yesterday and was then made NPO. Pt and family report pt was seen by ENT this am who said that she can eat. Pending report/orders History Source: Patient, Family Member Limitations to Obtaining History: No Limitations - Past Medical History ...LMP: 01/04/19 ...: No - Smoking History Smoking history: Never smoked - Alcohol/Substance Use Hx Alcohol Use: No History - Admission Reason For Visit: SIALODOCHOLITHIASIS - Diagnostics CT Scan: Report Reviewed - General Mental Status: Alert and Oriented, Awake and Alert, Able to Follow Commands Attention: Intact Ability to Follow Directions: Excellent Head/Neck Control: WFL - Hearing Hearing: Normal Speech Evaluation - Communication Primary Language: L[place] Communication: Yes: Within Normal Limits Oral Expression Ability: Yes: No Impairment - Speech Production Able to Make Needs Known: Yes: WNL Intelligibility: Yes: WNL - Speech Characteristics Voice Loudness: Normal Voice Pitch: Yes: Normal Voice Phonatory-based Quality: Yes: Normal Speech Pattern: Normal Speech Clarity: < 100% Nasal Resonance: Normal Articulation: Yes: Precise Rate of Speech: Intact - Language/Auditory Comprehension Follows: Yes: 2 Stage Simple Commands - Language/Verbal Expression Able to Respond to Simple Queries: Yes: WNL Able to Communicate Wants and Needs: Yes: WNL Functional Communication Status: Yes: WNL - Swallow Evaluation/Bedside Assessment Current Nutritional Intake: NPO Oral Secretions: Yes: WFL Dentition: Yes: Adequate Facial Symmetry at Rest: Symmetrical Facial Symmetry on Retraction: Symmetrical Sensation: Normal Against Resistance Opening: Normal Against Resistance Closing: Normal Pucker Lips: Normal Smile: Normal Lingual Movement: Normal, Symmetric Lingual Speed of Movement: Normal Lingual Movement Strgth Against Opposition: Normal Lingual Movement Characteristics: Normal Velopharyngeal Movement: Normal Laryngeal Elevation: WFL Laryngeal Movement: Able to Palpate Rate of Intake: WFL Bolus Size: WFL Labial Seal: WFL Chewing: WFL Oral Prep Time: WFL A-P Transit: WFL Pocketing: None Timing of Swallow: WFL Coughing/Throat Clear: No Change in Voice: No Recommendations - Speech Evaluation, Impression/Plan Impression: 3 oz water (-). Tolerated reg diet in ED.Pt feeling much better. Swallowing well. - Dysphagia Impressions/Plan Swallowing Skills: WFL Dysphagia Impressions: No Impairment *Silent aspiration: cannot be R/O at bedside Recommendations: ENT Consult (seen) - Recommendations Diet Consistency: Regular Medication Administration: Whole with water Liquids: Thin Liquids
--- NOTE | 2019-01-12 12:49 | CONSULT ---
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 Had oral surgery removal of a stone last year, and passed one on her own during this hospitalization. Is feeling much better on IV abx, hydration, steroids, and analgesics. Calcium was normal. P/WD obese BF laying comfortably in bed, in NAD Neck no masses/tenderness OC/OP tender/edematous left floor of mouth/[place]'s duct with erythema around the orifice of [place]'s duct Imp: Improving recurrent left submandibular sialadenitis Recommend allowing to eat, continue present management, transition to po meds, and outpatient follow up with ENT
[2019-01-12] MEDS ORDERED: FLUCONAZOLE 150 MG TABLET PO ONE (13:14)
--- NOTE | 2019-01-12 17:11 | PN ---
Teaching Attending Note Name of Resident: Matti Salazar ATTENDING PHYSICIAN STATEMENT I saw and evaluated the patient. I reviewed the resident's note and discussed the case with the resident. I agree with the resident's findings and plan as documented. SUBJECTIVE: Patient reports significant improvement in pain, swelling and ability to swallow. OBJECTIVE: afebril, hemodynamically Stable. Last Vital Signs Temp Pulse Resp BP Pulse Ox 97.9 F 89 18 133/60 100 01/12/19 14:00 01/12/19 14:00 01/12/19 14:00 01/12/19 14:00 01/11/19 20:57 HEENT: No p[haryngeal erythema/exudate. Left submandibular fullness/firmness, non-tender. No lymphadenopathy. HEART: S1S2, RRR LUNGS: Clear to auscultation ABDOMEN: Obese, soft, non-tender, normal BS EXTREMITIES: No edema, no calf tenderness. NEURO: AAO x 3. Tone/Power normal all 4 extremities Laboratory Tests 01/10/19 01/10/19 01/10/19 11:48 12:00 12:01 WBC 11.5 H RBC 4.18 Hgb 11.5 Hct 35.4 MCV 84.8 MCH 27.6 MCHC 32.6 RDW 16.0 H Plt Count 368 MPV 7.3 L Absolute Neuts (auto) 9.1 H Neutrophils % 78.8 Lymphocytes % 13.2 Monocytes % 6.7 Eosinophils % 0.5 Basophils % 0.8 Nucleated RBC % 0 Sodium 139 Potassium 3.4 L Chloride 103 Carbon Dioxide 26 Anion Gap 10 BUN 7.5 Creatinine 0.6 Est GFR (CKD-EPI)AfAm 136.87 Est GFR (CKD-EPI)NonAf 118.09 POC Glucometer Random Glucose 91 Calcium 9.3 Magnesium Total Bilirubin 0.4 AST 10 L ALT 18 Alkaline Phosphatase 128 H Total Protein 7.3 Albumin 3.7 Serum , Qual Negative Urine Color Urine Appearance Urine pH Ur Specific [place] Urine Protein Urine Glucose (UA) Urine Ketones Urine Blood Urine Nitrite Urine Bilirubin Urine Urobilinogen Ur Leukocyte Esterase Urine WBC (Auto) Urine RBC (Auto) Urine Casts (Auto) U Epithel Cells (Auto) Urine Bacteria (Auto) 01/10/19 01/11/19 01/11/19 13:55 06:00 06:00 WBC 12.7 H RBC 4.15 Hgb 11.4 Hct 35.2 MCV 84.9 MCH 27.5 MCHC 32.4 RDW 15.7 H Plt Count 418 MPV 7.9 Absolute Neuts (auto) 11.3 H Neutrophils % 88.8 H Lymphocytes % 7.1 L D Monocytes % 3.9 Eosinophils % 0.0 D Basophils % 0.2 Nucleated RBC % 0 Sodium 136 Potassium 4.2 Chloride 104 Carbon Dioxide 25 Anion Gap 7 L BUN 6.8 L Creatinine 0.5 L Est GFR (CKD-EPI)AfAm 145.33 Est GFR (CKD-EPI)NonAf 125.39 POC Glucometer Random Glucose 127 H Calcium 9.4 Magnesium 2.3 Total Bilirubin 0.4 AST 7 L ALT 15 Alkaline Phosphatase 128 H Total Protein 7.4 Albumin 3.5 Serum , Qual Urine Color Yellow Urine Appearance Cloudy Urine pH 5.5 Ur Specific [place] 1.035 Urine Protein Negative Urine Glucose (UA) Negative Urine Ketones 3+ H Urine Blood Negative Urine Nitrite Negative Urine Bilirubin Negative Urine Urobilinogen 1.0 Ur Leukocyte Esterase Trace Urine WBC (Auto) 3 Urine RBC (Auto) 3 Urine Casts (Auto) 16 U Epithel Cells (Auto) 9.6 Urine Bacteria (Auto) 134.5 01/11/19 01/11/19 01/11/19 07:01 13:52 21:06 WBC RBC Hgb Hct MCV MCH MCHC RDW Plt Count MPV Absolute Neuts (auto) Neutrophils % Lymphocytes % Monocytes % Eosinophils % Basophils % Nucleated RBC % Sodium Potassium Chloride Carbon Dioxide Anion Gap BUN Creatinine Est GFR (CKD-EPI)AfAm Est GFR (CKD-EPI)NonAf POC Glucometer 135 141 187 Random Glucose Calcium Magnesium Total Bilirubin AST ALT Alkaline Phosphatase Total Protein Albumin Serum , Qual Urine Color Urine Appearance Urine pH Ur Specific [place] Urine Protein Urine Glucose (UA) Urine Ketones Urine Blood Urine Nitrite Urine Bilirubin Urine Urobilinogen Ur Leukocyte Esterase Urine WBC (Auto) Urine RBC (Auto) Urine Casts (Auto) U Epithel Cells (Auto) Urine Bacteria (Auto) 01/12/19 01/12/19 05:53 11:15 WBC RBC Hgb Hct MCV MCH MCHC RDW Plt Count MPV Absolute Neuts (auto) Neutrophils % Lymphocytes % Monocytes % Eosinophils % Basophils % Nucleated RBC % Sodium Potassium Chloride Carbon Dioxide Anion Gap BUN Creatinine Est GFR (CKD-EPI)AfAm Est GFR (CKD-EPI)NonAf POC Glucometer 131 123 Random Glucose Calcium Magnesium Total Bilirubin AST ALT Alkaline Phosphatase Total Protein Albumin Serum , Qual Urine Color Urine Appearance Urine pH Ur Specific [place] Urine Protein Urine Glucose (UA) Urine Ketones Urine Blood Urine Nitrite Urine Bilirubin Urine Urobilinogen Ur Leukocyte Esterase Urine WBC (Auto) Urine RBC (Auto) Urine Casts (Auto) U Epithel Cells (Auto) Urine Bacteria (Auto) Current Medications Generic Name Dose Route Start Last Admin Trade Name Freq PRN Reason Stop Dose Admin Acetaminophen 1,000 mg 01/10/19 22:29 01/12/19 00:43 Ofirmev Injection - IVPB 1,000 mg Q6H PRN Administration PAIN OR FEVER Dexamethasone Sodium Phosphate 10 mg 01/11/19 06:00 01/12/19 05:55 Decadron Injection - IVPUSH 10 mg Q12H JUANIS Administration Heparin Sodium (Porcine) 5,000 unit 01/11/19 06:00 01/12/19 14:35 Heparin - SQ Not Given TID JUANIS Lactated Ringer's 1,000 ml in 1,000 mls @ 83 mls/hr 01/10/19 22:30 01/11/19 22:51 Lactated Ringers Solution IV Not Given ASDIR JUANIS Ampicillin Sodium/Sulbactam 100 mls @ 200 mls/hr 01/11/19 06:30 01/12/19 16: 04 Sodium 3 gm/ Sodium Chloride IVPB 200 mls/hr Q6H-IV JUANIS Administration Insulin Aspart 1 vial 01/11/19 07:00 01/12/19 11:16 Novolog Vial Sliding Scale - SQ Not Given ACHS [facility] Protocol Pantoprazole Sodium 40 mg 01/11/19 10:00 01/12/19 10:33 Protonix Iv IVPUSH 40 mg BID JUANIS Administration Discharge Medications Medication Instructions Recorded Amoxicillin/Potassium Clav 1 each PO BID #16 tablet 01/12/19 [Augmentin 875-125 Tablet] Fluconazole [Diflucan] 150 mg PO ONCE #1 tablet 01/12/19 predniSONE [Deltasone -] 40 mg PO ASDIR 3 Days #12 tab 01/12/19 ASSESSMENT AND PLAN: 33 year old female with a history of recurrent left submandibular sialadenitis, twice in the last 2 years, s/p oral surgical removal of a stone last year, presented with difficulty swallowing, L mandibular swelling and swelling of her tongue. 1. L Submandibular Sialadenitis Afebrile, hemoynamically stable. Passed a stone spontaneously. treated with IV Unasyn and Prednisone. Seen by ENT Medically stable for discharge on Augmentin and short Steroid course. Evaluated by speech therapy- cleared for regular diet/thin liquids. Out-patient ENT follow up. 2. Hypokalemia - resolved. 3. Vaginal candidiasis - for Diflucan - 2 doses, 72 hrs apart.
[2019-01-12 18:12] VITALS: BP 123/77; PULSE 83; TEMP 97.8
--- NOTE | 2019-01-12 20:29 | DS ---
Physical Exam: SUBJECTIVE: Patient seen and examined OBJECTIVE: Vital Signs Period Temp Pulse Resp BP Sys/Jean-Baptiste Pulse Ox Last 24 Hr 97.6 F-98.2 F 64-94 16-18 123-153/60-83 99-100 PHYSICAL EXAM GENERAL: The patient is awake, alert, and fully oriented, in no acute distress. HEAD: Normal with no signs of trauma. EYES: sclera anicteric, conjunctiva clear. ENT: Ears normal, nares patent, oropharynx clear without exudates, no blood in oropharynx. Moist mucous membranes. Soft palate visible. No swelling of tongue or under tongue. Mild fullness and tenderness to deep Left submental area. [place] chalky firm subcentimeter mass seen in specimen kit, claimed to be spat out by patient NECK: Trachea midline, full range of motion, supple. LUNGS: Breath sounds equal, clear to auscultation bilaterally, no wheezes, no crackles, no accessory muscle use. HEART: Regular rate and rhythm, S1, S2 without murmur, rub or gallop. ABDOMEN: Soft, nontender, nondistended, no guarding, no rebound, no hepatosplenomegaly, no masses. EXTREMITIES: warm, well-perfused, no edema. NEUROLOGICAL: Normal speech, normal gait. PSYCH: Normal mood, normal affect. LABS Laboratory Results - last 24 hr 01/11/19 01/12/19 01/12/19 21:06 05:53 11:15 POC Glucometer 187 131 123 01/12/19 17:50 POC Glucometer 123 HOSPITAL COURSE: 33F w/ pmh of sialolithiasis(dx 2018) presented with difficulty swallowing, shortness of breath secondary to tongue swelling from retained salivary stones. CT scan of the neck revealed a Left distal [place]'s duct stone 6mm; curvilinear calcification 1.3 cm noted at the left base of the tongue which may represent calcified stylohyoid ligament and sequela of [place] syndrome vs accessory salivary duct stone; several enlarged regional lymph nodes. Intravenous steroids and antibiotics were administered. Symptoms improved. ENT specialist evaluated and recommended to continue with oral steroids and antibiotics, allow diet, and follow-up with ENT as outpatient. Speech and swallow determined pt to be within the full range of normal. Date of Admission:01/10/19 Date of Discharge: 01/12/19 Discharge Summary Reason For Visit: SIALODOCHOLITHIASIS Current Active Problems Salivary duct calculus (Acute) Condition: Stable - Instructions Diet, Activity, Other Instructions: You were evaluated at the hospital for swelling of your tongue and oropharynx with difficulty swallowing. CT scan of the neck revealed a Left distal Aish[place]arya' s duct stone 6mm; curvilinear calcification 1.3 cm noted at the left base of the tongue which may represent calcified stylohyoid ligament and sequela of [place] syndrome vs accessory salivary duct stone; several enlarged regional lymph nodes. Intravenous steroids and antibiotics were administered. Your symptoms improved. An ENT specialist has evaluated you with the recommendation to continue with oral steroids and antibiotics, allow diet, and follow-up with ENT as outpatient. You ability to speak and swallow was determined to be within the full range of normal. Follow up with the following physicians: 1. PCP in one week, please call to schedule an appointment 2. ENT, Dr Saw Dietz; please call to schedule an appointment Medications: -take 8 days of Amoxicillin-Clavulanic acid[AUGMENTIN], please finish all the antibiotics -take 3 days of prednisone, please finish all the steroids -take 1 dose of fluconazole[DIFLUCAN], on Friday, the (~approximately 72hs after your hospital dose) Other Care instructions: -activity as tolerated -no restrictions on diet -stay hydrated with plenty of fluids -avoid smoking Please return to the ER if you have any signs or symptoms of chest pain, shortness of breath, uncontrollable fever, chills, nausea, vomiting, numbness, tingling, or weakness in any part of your body, changes in vision, or slurred speech. Please return to the ER if symptoms persist, worsen, or new symptoms arise. Referrals: Saw Dietz MD [Staff Physician] - Disposition: HOME - Home Medications Comprehensive Discharge Medication List: Ambulatory Orders Amoxicillin/Potassium Clav [Augmentin 875-125 Tablet] 1 each PO BID #16 tablet 01/12/19 Fluconazole [Diflucan] 150 mg PO ONCE #1 tablet 01/12/19 predniSONE [Deltasone -] 40 mg PO ASDIR 3 Days #12 tab 01/12/19 ATTENDING PHYSICIAN STATEMENT I saw and evaluated the patient. I reviewed the resident's note and discussed the case with the resident. I agree with the resident's findings and plan as documented. SUBJECTIVE: OBJECTIVE: ASSESSMENT AND PLAN:
== END 2019-01-12 19:20 | disposition home or self-care (01) | DRG 115 ==
LOC: JER 10:58 → JERBED 20:52 → J5S 01-11 19:50
PROVIDERS: ADMIT Internal Medicine
DX: K11.5 Sialolithiasis (principal); J39.2 Other diseases of pharynx; R50.9 Fever, unspecified; R51 Headache; R59.9 Enlarged lymph nodes, unspecified; K14.9 Disease of tongue, unspecified; E87.6 Hypokalemia; D72.829 Elevated white blood cell count, unspecified; B37.3 Candidiasis of vulva and vagina; R13.10 Dysphagia, unspecified
CPT/HCPCS: 36415; 70491-TC; 80053; 81003; 82962; 83735; 84703; 85025; 93005; 93010; 99285-25; J0131; J1100; J7030

== ENCOUNTER 2020-01-13 08:57 | Emergency (ER) | payer OTHER ==
[2020-01-13 09:04] VITALS: BP 118/76; PULSE 81; TEMP 98.6; BMI 36.1
--- NOTE | 2020-01-13 09:43 | PDOC ---
History of Present Illness - General Chief Complaint: Vaginal Bleeding Stated Complaint: VAGINAL BLEEDING Time Seen by Provider: 01/13/20 09:24 History Source: Patient Exam Limitations: Clinical Condition - History of Present Illness Initial Comments: 01/13/20 09:58 Patient with no significant past medical history present with complaint of irregular menstrual period for the past month. Patient reported heavy menstrual periods in the beginning of the month which lasted for 5 days went away and came back 4 days later. Patient was seen in [facility] last week for sy mptoms and to have blood work done and ultrasound done which patient presented with report which shows uterine fibroids and ovarian cysts with negative . Patient reports she came in today for second opinion as her menstrual. Started again soaking 1 pad a day and has been having intermittent bleeding. Patient has not followed up with CONTRACT DESIGN AGENT. Denies abdominal pain, weakness, dizziness, fever, chills, pelvic pain. Denies any other symptoms Is this a multiple visit Asthma Patient?: No Past History - Medical History Allergies/Adverse Reactions: Allergies Allergy/AdvReac Type Severity Reaction Status Date / Time No Known Allergies Allergy Verified 01/13/20 08:59 Home Medications: Ambulatory Orders NK [No Known Home Medication] 01/13/20 COPD: No - Reproductive History Is Patient Now?: No - Psycho-Social/Smoking History Smoking History: Never smoked Have you smoked in the past 12 months: No - Substance Abuse Hx (Audit-C & DAST Scrn) How often the patient has a drink containing alcohol: Monthly or less Number of drinks the patient has on a typical day: 1 or 2 How often the patient has six or more drinks on one occasion: Never Score: In Men: 4 or > Positive; In Women: 3 or > Positive: 1 Screen Result (Pos requires Nsg. Audit-10AR): Negative In the last yr the pt used illegal drug/Rx for NonMed reason: No Score: Yes response is considered Positive: 0 Screen Result (Positive result requires Nsg. DAST-10): Negative Review of Systems - Review of Systems Able to Perform ROS?: Yes Is the patient limited [place] proficient: No Constitutional: No: Chills, Fever, Malaise HEENTM: No: Symptoms Reported, See HPI, Eye Pain, Blurred Vision, Tearing, Recent change in vision, Double Vision, Cataracts, Ear Pain, Ocular Prothesis, Ear Discharge, Nose Pain, Nose Congestion, Tinnitus, Nose Bleeding, Hearing Loss, Throat Pain, Throat Swelling, Mouth Pain, Dental Problems, Difficulty Swallowing, Mouth Swelling, Other Respiratory: No: Symptoms reported, See HPI, Cough, Orthopnea, Shortness of Breath, SOB with Exertion, SOB at Rest, Stridor, Wheezing, Productive cough, Hemoptysis, Other Cardiac (ROS): No: Symptoms Reported, See HPI, Chest Pain, Edema, Irregular Heart Rate, Lightheadedness, Palpitations, Syncope, Chest Tightness, Other ABD/GI: No: Symptoms Reported : Yes: Symptoms Reported, See HPI, Other (irregular menstrual period). No: Burning, Frequency, Hematuria Musculoskeletal: No: Symptoms Reported Integumentary: No: Symptoms Reported Neurological: No: Symptoms reported, Headache, Weakness, Dizziness All Other Systems: Reviewed and Negative *Physical Exam - Vital Signs Last Vital Signs Temp Pulse Resp BP Pulse Ox 98.6 F 81 16 118/76 100 01/13/20 08:59 01/13/20 08:59 01/13/20 08:59 01/13/20 08:59 01/13/20 08:59 - Physical Exam General Appearance: Yes: Nourished, Appropriately Dressed. No: Apparent Dist ress HEENT: positive: Normal ENT Inspection Respiratory/Chest: negative: Respiratory Distress, Accessory Muscle Use Musculoskeletal: positive: Normal Inspection Extremity: positive: Normal Inspection, Normal Range of Motion Integumentary: positive: Normal Color Neurologic: positive: Fully Oriented, Alert, Normal Mood/Affect, Normal Response, Motor Strength 5/5 Medical Decision Making - Medical Decision Making 01/13/20 10:01 Patient with no significant past medical history present with complaint of irregular menstrual period for the past month. Patient reported heavy menstrual periods in the beginning of the month which lasted for 5 days went away and came back 4 days later. Patient was seen in [facility] last week for symptoms and to have blood work done and ultrasound done which patient presented with report which shows uterine fibroids and ovarian cysts with negative . Patient reports she came in today for second opinion as her menstrual. Started again soaking 1 pad a day and has been having intermittent bleeding. Patient has not followed up with CONTRACT DESIGN AGENT. Denies abdominal pain, weakness, dizziness, fever, chills, pelvic pain. Denies any other symptoms Patient in no acute distress. Patient decided to cut short visit after asking if we will do anything different than what was done in [facility]. Patient advised blood work will be done to make sure there is no anemia or any acute abnormality and repeat ultrasound and if everything is normal will refer to follow-up with CONTRACT DESIGN AGENT. Patient declined further work-up or visit from that point and Report she does not want to waste time if nothing different is going to be done as she has other things to do and will rather follow-up with her CONTRACT DESIGN AGENT. Patient want to leave without any other further work-up and stable for d/c in no acute distress Discharge - Discharge Information Problems reviewed: Yes Clinical Impression/Diagnosis: Menorrhagia with irregular cycle Condition: Stable Disposition: HOME - Admission No - Follow up/Referral Referrals: Susana Urrutia MD [Primary Care Provider] - Iván Sosa MD [Staff Physician] - - Patient Discharge Instructions Patient Printed Discharge Instructions: DI for Menorrhagia Additional Instructions: Follow-up with your CONTRACT DESIGN AGENT as discussed. You decided not to do a work-up today because you are ready have the blood work and ultrasound done at [facility] and you rather not waste time here today and follow-up with your CONTRACT DESIGN AGENT. Make sure to follow with your CONTRACT DESIGN AGENT - Post Discharge Activity
== END 2020-01-13 09:49 | disposition home or self-care (01) ==
LOC: JER 08:57
DX: N92.1 Excessive and frequent menstruation with irregular cycle (principal)
CPT/HCPCS: 99282-25

== ENCOUNTER 2020-08-20 08:26 | Emergency (ER) | payer OTHER ==
[2020-08-20 08:35] VITALS: BP 117/78; PULSE 87; TEMP 98; BMI 36.5
[2020-08-20 09:44] LABS: BASO % 0.6 % (0-2.0); EOS % 1.5 % (0-4.5); HEMATOCRIT 33.3 % (32.4-45.2); HEMOGLOBIN 11.2 GM/dL (10.7-15.3); LYMPH % 21.5 % (8-40); MCH 29.7 pg (25.7-33.7); MCHC 33.7 g/dl (32.0-36.0); MEAN CELL VOLUME 87.9 fl (80-96); MEAN PLT VOLUME 6.9 fl (7.5-11.1); MONO % 6.7 % (3.8-10.2); NEUT % 69.7 % (42.8-82.8); PLATELET COUNT 351 K/MM3 (134-434); RBC 3.79 M/mm3 (3.60-5.2); RDW 15.8 % (11.6-15.6); WHITE BLOOD COUNT 7.3 K/mm3 (4.0-10.0)
[2020-08-20 09:49] LABS: EPI CELLS 5 /uL (0-25.1); HYALINE CASTS 6 /uL (0-3.1); PH,URINE 7.5 (5.0-8.0); URINE APPEARANCE CLOUDY; URINE BACTERIA 217 /uL (0-1359); URINE BILIRUBIN NEGATIVE (NEGATIVE); URINE COLOR YELLOW; URINE GLUCOSE (UA) NEGATIVE (NEGATIVE); URINE KETONE NEGATIVE (NEGATIVE); URINE LEUK ESTERASE 2+ (NEGATIVE); URINE NITRITE NEGATIVE (NEGATIVE); URINE PROTEIN NEGATIVE (NEGATIVE); URINE RBC 12 /uL (0-23.9); URINE UROBILINOGEN 0.2 mg/dL (0.2-1.0); URINE WBC 284 /uL (0-25.8)
[2020-08-20 09:50] LABS: INR 0.97 (0.83-1.09); PROTHROMBIN TIME (PATIENT) 11.9 SEC (9.7-13.0)
[2020-08-20 09:53] LABS: ACTIVATED PTT 29.9 SECONDS (25.2-36.5)
[2020-08-20 10:07] LABS: BLOOD UREA NITROGEN 6.5 mg/dL (7-18); CALCIUM 8.6 mg/dL (8.5-10.1)
[2020-08-20 10:08] LABS: ALBUMIN 3.2 g/dl (3.4-5.0)
[2020-08-20 10:10] LABS: CREATININE 0.6 mg/dL (0.55-1.3)
[2020-08-20 10:12] LABS: BILIRUBIN,TOTAL 0.2 mg/dL (0.2-1); TOT PROT 6.7 g/dl (6.4-8.2)
== END 2020-08-20 11:01 | disposition home or self-care (01) ==
LOC: JER 08:26
DX: N30.00 Acute cystitis without hematuria (principal)
CPT/HCPCS: 36415; 76817-TC; 80053; 81003; 84702; 85025; 85610; 85730; 86850; 86900; 86901; 87086; 99284-25

== ENCOUNTER 2021-10-02 10:20 | Emergency (ER) | payer OTHER ==
[2021-10-02 10:39] VITALS: BP 114/75; PULSE 79; TEMP 98.2; BMI 34.4
[2021-10-02] MEDS ORDERED: ACETAMINOPHEN 1000 MG/100 ML BAG IVPB ONE (11:46)
[2021-10-02 11:50] LABS: HCG,QUALITATIVE URINE Negative
[2021-10-02 11:55] LABS: EPI CELLS 12 /uL (0-25.1); HYALINE CASTS 1 /uL (0-3.1); PH,URINE 6.5 (5.0-8.0); URINE APPEARANCE CLOUDY; URINE BACTERIA 34 /uL (0-1359); URINE BILIRUBIN NEGATIVE (NEGATIVE); URINE COLOR ORANGE; URINE GLUCOSE (UA) NEGATIVE (NEGATIVE); URINE KETONE NEGATIVE (NEGATIVE); URINE LEUK ESTERASE TRACE (NEGATIVE); URINE NITRITE NEGATIVE (NEGATIVE); URINE PROTEIN TRACE (NEGATIVE); URINE RBC 6488 /uL (0-23.9); URINE UROBILINOGEN 0.2 mg/dL (0.2-1.0); URINE WBC 23 /uL (0-25.8)
[2021-10-02] MEDS ORDERED: ACETAMINOPHEN INJECTION 100 ML IVPB ONE (12:02)
[2021-10-02] MEDS ORDERED: SODIUM CHLORIDE 0.9% 500 ML INFUS.BAG IV ONE (12:11)
[2021-10-02 12:21] LABS: BASO % 0.8 % (0-2.0); EOS % 3.3 % (0-4.5); HEMATOCRIT 32.9 % (32.4-45.2); HEMOGLOBIN 11.1 GM/dL (10.7-15.3); LYMPH % 40.4 % (8-40); MCH 29.5 pg (25.7-33.7); MCHC 33.8 g/dl (32.0-36.0); MEAN CELL VOLUME 87.2 fl (80-96); MEAN PLT VOLUME 7.1 fl (7.5-11.1); MONO % 7.2 % (3.8-10.2); NEUT % 48.3 % (42.8-82.8); PLATELET COUNT 307 10^3/uL (134-434); RBC 3.78 M/mm3 (3.60-5.2); RDW 14.8 % (11.6-15.6)
[2021-10-02 12:41] LABS: ALBUMIN 3.4 g/dl (3.4-5.0); CALCIUM 8.8 mg/dL (8.5-10.1)
[2021-10-02 12:44] LABS: CREATININE 0.6 mg/dL (0.55-1.3)
[2021-10-02 12:46] LABS: BILIRUBIN,TOTAL 0.2 mg/dL (0.2-1); TOT PROT 6.7 g/dl (6.4-8.2)
== END 2021-10-02 14:59 | disposition home or self-care (01) ==
LOC: JER 10:20
PROC: 3E0333Z Introduction of Anti-inflammatory into Peripheral Vein, Percutaneous Approach (ICD-10-PCS; principal; 2021-10-02)
DX: R10.9 Unspecified abdominal pain (principal)
CPT/HCPCS: 36415; 76775-TC; 76830-TC; 76856-TC; 80053; 81003; 83690; 84703; 85025; 87077; 87086; 99285-25